=== PATIENT | male | born 1980 | race Hispanic/Latino ===

== ENCOUNTER → 2025-06-25 | Day surgery (SDC) | payer BC ==
[~2025-06-25] MED LIST: ACID REDUCER10 MG; ESCITALOPRAM OX10 MG; FENTANYL CITRATE/PF 100MCG/2 ML INJ ONE; GLUCAGON FOR INJ 1 MG VIAL ONE; LIDOCAINE HCL 2% LOCAL INJ 5 ML SDV VIAL INJ ONE; OMEPRAZOLE40 MG PO; PROPOFOL IV EMULSION 10 MG/ML 20 ML VIAL ONE; PROPOFOL IV EMULSION 50 ML IV ONE
[2025-06-25] MEDS: LACTATED RINGER'S 1,000 ML ONE (11:21)
[2025-06-25 13:42] VITALS: TEMP 97
[2025-06-25 14:10] VITALS: BP 124/91; PULSE 71; RESP 18; O2SAT 98
== END | disposition home or self-care (01) ==
LOC: OR 10:48
PROVIDERS: ATTEND Internal Medicine Gastroenterology
DX: K29.70 Gastritis, unspecified, without bleeding (principal); D12.3 Benign neoplasm of transverse colon; D12.5 Benign neoplasm of sigmoid colon; K31.7 Polyp of stomach and duodenum; K31.89 Other diseases of stomach and duodenum; K20.90 Esophagitis, unspecified without bleeding; K64.8 Other hemorrhoids; K21.9 Gastro-esophageal reflux disease without esophagitis; Z71.89 Other specified counseling; F41.9 Anxiety disorder, unspecified; Z88.0 Allergy status to penicillin; Z01.810 Encounter for preprocedural cardiovascular examination; Z79.899 Other long term (current) drug therapy; Z68.31 Body mass index [BMI] 31.0-31.9, adult; Z71.3 Dietary counseling and surveillance
CPT/HCPCS: 43239; 43251; 45385; 93005; J1610; J2003; J2470